=== PATIENT | female | born 1955 | race Caucasian/White ===

== ENCOUNTER → 2020-03-25 10:45 | Outpatient (BNVA) | payer OTHER, SELFPAY | PROVIDERS: PCP Internal Medicine; Referring Provider Internal Medicine; Visit Provider Obstetrics & Gynecology | DX: Z76.89 Persons encountering health services in other specified circumstances (principal) ==

== ENCOUNTER 2020-09-28 09:50 | Outpatient (REF) | payer OTHER, SELFPAY ==
--- NOTE | ~2020-09-28 | MM_ITS ---
EXAMINATION: MM SCREENING DIGITAL BREAST TOMOSYNTHESIS, BILATERAL CLINICAL INFORMATION: Screening. Asymptomatic. No known family history breast cancer. No prior breast imaging. The lifetime risk of breast cancer based on the Tyrer-Cuzick Model is 9%. COMPARISON: None (current study represents initial baseline exam). TECHNIQUE: Digital breast tomosynthesis is performed in both the craniocaudal and mediolateral oblique views along with computer-aided detection (CAD). Synthesized 2D images are generated from the tomosynthesis. FINDINGS: The breasts are heterogeneously dense, which may obscure small masses (ACR BI-RADS breast composition Category c). There is no significant mass or architectural abnormality. There are scattered bilateral diffuse punctate and some coarse calcifications. No focal versus calcifications. The axilla and skin contours are unremarkable. MM/MM tomosynthesis screening BI IMPRESSION: No mammographic evidence of malignancy. ASSESSMENT: BI-RADS 2: Benign RECOMMENDATION: Routine annual mammography screening. This patient's information was entered into a reminder system with a target due date for their next mammogram.
== END 2020-09-28 09:51 | disposition home or self-care (01) ==
LOC: HO.MAMMO 09:50
PROVIDERS: Referring Provider Obstetrics & Gynecology; Visit Provider Internal Medicine
DX: Z12.31 Encounter for screening mammogram for malignant neoplasm of breast (principal)
CPT/HCPCS: 77063; 77067

== ENCOUNTER 2021-08-18 08:11 | Outpatient (REF) | payer OTHER, SELFPAY ==
[2021-08-18 08:45] LABS: MANUAL DIFF FLAG NO
[2021-08-18 08:55] LABS: Basophils Percent Auto 0.4 % (0-2); Eosinophils Absolute Auto 0.1 X10*3/uL (0.0-0.4); Eosinophils Percent Auto 1.7 % (0-4); Hematocrit 35.8 % (37.0-47.0); Hemoglobin 12.1 g/dl (12.0-16.0); Imm Gran Abs Auto 0.03 X10*3/uL (0.00-0.03); Imm Gran Pct Auto 0.6 % (0.0-0.4); Lymphocytes Absolute Auto 0.6 X10*3/uL (1.2-4.9); Lymphocytes Percent Auto 12.9 % (20-40); Mean Corpuscular HGB Conc 33.8 g/dl (31.0-35.0); Mean Corpuscular Hemoglobin 29.3 pg (27.0-33.0); Mean Corpuscular Volume 86.7 fL (80.0-98.0); Monocytes Absolute Auto 0.4 X10*3/uL (0.1-1.2); Monocytes Percent Auto 7.5 % (2-11); Neutrophils Absolute Auto 3.7 x10*3/uL (2.0-8.3); Neutrophils Percent Auto 76.9 % (45-73); Platelet Count 244 X10*3/uL (160-400); Red Blood Count 4.13 X10*6/uL (4.20-5.50); Red Cell Distribution Width 12.8 % (11.0-16.0); White Blood Count 4.8 X10*3/uL (4.8-10.8)
[2021-08-18 09:27] LABS: Alanine Aminotransferase 6 U/L (0-31); Albumin Level 4.2 g/dL (3.5-5.0); Alkaline Phosphatase 88 U/L (39-117); Anion Gap 13 (12-20); Aspartate Amino Transferase 15 U/L (5-31); Bilirubin Total 0.8 mg/dL (0.0-1.0); Blood Urea Nitrogen 21 mg/dL (9-16); Calcium 9.5 mg/dL (8.4-10.2); Carbon Dioxide 21 mmol/L (22-29); Chloride 111 mmol/L (96-108); Cholesterol 180 mg/dL; Estimated Glomerular Filt Rate 54; Glucose Random 118 mg/dL (60-115); HDL Cholesterol 48 mg/dL; LDL Cholesterol Calculated 114 mg/dl; Potassium 4.2 mmol/L (3.3-5.1); Sodium 141 mmol/L (135-145); Total Protein 6.7 g/dL (6.5-8.0); Triglycerides 94 mg/dL
== END 2021-08-18 08:12 | disposition home or self-care (01) ==
LOC: HO.LAB 08:11
PROVIDERS: PCP Internal Medicine; Visit Provider Physician Assistant
DX: Z00.00 Encounter for general adult medical examination without abnormal findings (principal)
CPT/HCPCS: 36415; 80053; 80061; 85025

== ENCOUNTER 2021-10-04 09:48 | Outpatient (REF) | payer MEDICARE, SELFPAY ==
--- NOTE | ~2021-10-04 | MM_ITS ---
EXAMINATION: MM SCREENING DIGITAL BREAST TOMOSYNTHESIS, BILATERAL CLINICAL INFORMATION: Screening. Asymptomatic. The lifetime risk of breast cancer based on the Tyrer-Cuzick Model is 8%. COMPARISON: Mammography: 09/28/2020 (baseline) TECHNIQUE: Digital breast tomosynthesis is performed in both the craniocaudal and mediolateral oblique views along with computer-aided detection (CAD). Synthesized 2D images are generated from the tomosynthesis. FINDINGS: The breasts are heterogeneously dense, which may obscure small masses (ACR BI-RADS breast composition Category c). Parenchymal pattern is similar to prior studies. There is no significant mass or architectural abnormality. No developing density. Scattered bilateral punctate round calcifications are again seen similar in number and distribution to prior baseline exam. The axilla and skin contours are unremarkable. MM/MM tomosynthesis screening BI IMPRESSION: No mammographic evidence of malignancy. ASSESSMENT: BI-RADS 2: Benign RECOMMENDATION: Routine annual mammography screening. This patient's information was entered into a reminder system with a target due date for their next mammogram.
== END 2021-10-04 09:49 | disposition home or self-care (01) ==
LOC: HO.MAMMO 09:48
PROVIDERS: Visit Provider Internal Medicine
DX: Z12.31 Encounter for screening mammogram for malignant neoplasm of breast (principal)
CPT/HCPCS: 77063; 77067

== ENCOUNTER 2022-08-27 07:41 | Outpatient (REF) | payer MEDICARE, SELFPAY ==
[2022-08-27 07:55] LABS: MANUAL DIFF FLAG NO
[2022-08-27 08:23] LABS: Basophils Percent Auto 0.9 % (0-2); Eosinophils Absolute Auto 0.1 X10*3/uL (0.0-0.4); Eosinophils Percent Auto 2.8 % (0-4); Hematocrit 38.2 % (37.0-47.0); Hemoglobin 12.9 g/dl (12.0-16.0); Imm Gran Abs Auto 0.01 X10*3/uL (0.00-0.03); Imm Gran Pct Auto 0.2 % (0.0-0.4); Lymphocytes Percent Auto 20.2 % (20-40); Mean Corpuscular HGB Conc 33.8 g/dl (31.0-35.0); Mean Corpuscular Volume 85.8 fL (80.0-98.0); Mean Platelet Volume 9.1 fL (9.4-12.3); Monocytes Absolute Auto 0.5 X10*3/uL (0.1-1.2); Monocytes Percent Auto 9.6 % (2-11); Neutrophils Absolute Auto 3.1 x10*3/uL (2.0-8.3); Neutrophils Percent Auto 66.3 % (45-73); Platelet Count 300 X10*3/uL (160-400); Red Blood Count 4.45 X10*6/uL (4.20-5.50); Red Cell Distribution Width 12.9 % (11.0-16.0); White Blood Count 4.7 X10*3/uL (4.8-10.8)
[2022-08-27 09:05] LABS: Alanine Aminotransferase < 6 U/L (0-31); Albumin Level 4.4 g/dL (3.5-5.0); Alkaline Phosphatase 80 U/L (39-117); Anion Gap 14 (12-20); Aspartate Amino Transferase 15 U/L (5-31); Blood Urea Nitrogen 17 mg/dL (9-16); Calcium 9.3 mg/dL (8.4-10.2); Carbon Dioxide 24 mmol/L (22-29); Chloride 109 mmol/L (96-108); Cholesterol 194 mg/dL; Estimated Glomerular Filt Rate 55; Glucose Random 97 mg/dL (60-115); HDL Cholesterol 58 mg/dL; LDL Cholesterol Calculated 119 mg/dl; Potassium 4.3 mmol/L (3.3-5.1); Sodium 143 mmol/L (135-145); Total Protein 6.8 g/dL (6.5-8.0); Triglycerides 85 mg/dL
== END 2022-08-27 07:42 | disposition home or self-care (01) ==
LOC: HO.LAB 07:41
PROVIDERS: PCP Internal Medicine; Visit Provider Physician Assistant
DX: Z00.00 Encounter for general adult medical examination without abnormal findings (principal)
CPT/HCPCS: 36415; 80053; 80061; 85025

== ENCOUNTER 2022-10-10 09:48 | Outpatient (REF) | payer MEDICARE, SELFPAY ==
--- NOTE | ~2022-10-10 | MM_ITS ---
EXAMINATION: MM SCREENING DIGITAL BREAST TOMOSYNTHESIS, BILATERAL CLINICAL INFORMATION: Screening. Asymptomatic. The lifetime risk of breast cancer based on the Tyrer-Cuzick Model is 7%. COMPARISON: Mammography: 10/04/2021, 09/28/2020 (baseline) TECHNIQUE: Digital breast tomosynthesis is performed in both the craniocaudal and mediolateral oblique views along with computer-aided detection (CAD). Synthesized 2D images are generated from the tomosynthesis. FINDINGS: The breasts are heterogeneously dense, which may obscure small masses (ACR BI-RADS breast composition Category c). There are no significant masses, abnormal calcifications, or other abnormalities. No architectural abnormality or developing density or significant change from prior studies. Again, there are scattered bilateral punctate and coarse calcifications similar to prior exams. The axilla are unremarkable. The skin contours are smooth. No significant changes from prior exams. MM/MM tomosynthesis screening BI IMPRESSION: No mammographic evidence of malignancy. ASSESSMENT: BI-RADS 2: Benign RECOMMENDATION: Routine annual mammography screening. This patient's information was entered into a reminder system with a target due date for their next mammogram.
== END 2022-10-10 09:49 | disposition home or self-care (01) ==
LOC: HO.MAMMO 09:48
PROVIDERS: PCP Internal Medicine; Visit Provider Internal Medicine
DX: Z12.31 Encounter for screening mammogram for malignant neoplasm of breast (principal)
CPT/HCPCS: 77063; 77067

== ENCOUNTER 2023-03-04 07:11 | Outpatient (REF) | payer MEDICARE, SELFPAY ==
--- NOTE | ~2023-03-04 | XR_ITS ---
EXAMINATION: XR CHEST CLINICAL INFORMATION: Cough COMPARISON: None available. TECHNIQUE: 2 views of the chest were obtained. FINDINGS: No acute finding. Lung whaley are felt to be grossly clear. No infiltrate. There is no effusion. The cardiac silhouette is within normal limits. The hilar regions do not appear pathologically enlarged. Degenerative changes and scoliosis in the thoracic spine. XR/XR chest 2V IMPRESSION: No acute finding.
== END 2023-03-04 07:12 | disposition home or self-care (01) ==
LOC: HO.XRAY 07:11
PROVIDERS: PCP Internal Medicine; Visit Provider Physician Assistant
DX: R05.9 Cough, unspecified (principal)
CPT/HCPCS: 71046

== ENCOUNTER 2023-08-25 07:37 | Outpatient (REF) | payer MEDICARE, SELFPAY ==
[2023-08-25 07:54] LABS: MANUAL DIFF FLAG NO
[2023-08-25 08:27] LABS: Basophils Percent Auto 0.5 % (0-2); Eosinophils Absolute Auto 0.2 X10*3/uL (0.0-0.4); Eosinophils Percent Auto 2.7 % (0-4); Hematocrit 35.4 % (37.0-47.0); Hemoglobin 12.2 g/dl (12.0-16.0); Imm Gran Abs Auto 0.02 X10*3/uL (0.00-0.03); Imm Gran Pct Auto 0.4 % (0.0-0.4); Lymphocytes Absolute Auto 1.1 X10*3/uL (1.2-4.9); Lymphocytes Percent Auto 19.2 % (20-40); Mean Corpuscular HGB Conc 34.5 g/dl (31.0-35.0); Mean Corpuscular Hemoglobin 29.5 pg (27.0-33.0); Mean Corpuscular Volume 85.7 fL (80.0-98.0); Mean Platelet Volume 9.2 fL (9.4-12.3); Monocytes Absolute Auto 0.5 X10*3/uL (0.1-1.2); Neutrophils Absolute Auto 3.7 x10*3/uL (2.0-8.3); Neutrophils Percent Auto 68.2 % (45-73); Platelet Count 270 X10*3/uL (160-400); Red Blood Count 4.13 X10*6/uL (4.20-5.50); Red Cell Distribution Width 12.9 % (11.0-16.0); White Blood Count 5.5 X10*3/uL (4.8-10.8)
[2023-08-25 08:29] LABS: Estimated Average Glucose 108 mg/dL; Hemoglobin A1c % 5.4 % (<6.0)
[2023-08-25 08:57] LABS: Alanine Aminotransferase 5 U/L (0-31); Albumin Level 4.2 g/dL (3.5-5.0); Alkaline Phosphatase 91 U/L (39-117); Anion Gap 13 (12-20); Aspartate Amino Transferase 15 U/L (5-31); Bilirubin Total 0.5 mg/dL (0.0-1.0); Blood Urea Nitrogen 23 mg/dL (9-16); Calcium 9.3 mg/dL (8.4-10.2); Carbon Dioxide 24 mmol/L (22-29); Chloride 109 mmol/L (96-108); Cholesterol 191 mg/dL (<200); Estimated Glomerular Filt Rate 59; Glucose Random 109 mg/dL (60-115); HDL Cholesterol 58 mg/dL (>40); LDL Cholesterol Calculated 117 mg/dL (<100); Potassium 4.1 mmol/L (3.3-5.1); Sodium 142 mmol/L (135-145); Total Protein 6.7 g/dL (6.5-8.0); Triglycerides 84 mg/dL (<150)
[2023-08-25 09:13] LABS: Vitamin D 25-OH Total 10.8 ng/mL (>30)
== END 2023-08-25 07:38 | disposition home or self-care (01) ==
LOC: HO.LAB 07:37
PROVIDERS: Visit Provider Physician Assistant
DX: Z00.00 Encounter for general adult medical examination without abnormal findings (principal); Z20.2 Contact with and (suspected) exposure to infections with a predominantly sexual mode of transmission
CPT/HCPCS: 36415; 80053; 80061; 82306; 83036; 85025

== ENCOUNTER 2023-10-16 07:32 | Outpatient (REF) | payer MEDICARE, SELFPAY ==
--- NOTE | ~2023-10-16 | MM_ITS ---
EXAMINATION: MM SCREENING DIGITAL BREAST TOMOSYNTHESIS, BILATERAL CLINICAL INFORMATION: Screening. Asymptomatic. COMPARISON: Mammography: This study is compared with prior exams dating back to 2020. TECHNIQUE: Digital breast tomosynthesis is performed in both the craniocaudal and mediolateral oblique views along with computer-aided detection (CAD). Synthesized 2D images are generated from the tomosynthesis. FINDINGS: The breasts are heterogeneously dense, which may obscure small masses (ACR BI-RADS breast composition Category c). There are no significant masses, abnormal calcifications, or other abnormalities. There are unchanged, bilateral, benign calcifications. MM/MM tomosynthesis screening BI IMPRESSION: No mammographic evidence of malignancy. ASSESSMENT: BI-RADS BI-RADS 2 - Benign Findings RECOMMENDATION: Routine annual mammography screening. 1 year F/U This examination should not preclude the clinical evaluation of a suspicious palpable abnormality. This patient's information was entered into a reminder system with a target due date for their next mammogram.
== END 2023-10-16 07:33 | disposition home or self-care (01) ==
LOC: HO.MAMMO 07:32
PROVIDERS: PCP Internal Medicine; Visit Provider Internal Medicine
DX: Z12.31 Encounter for screening mammogram for malignant neoplasm of breast (principal)
CPT/HCPCS: 77063; 77067

== ENCOUNTER → 2023-10-16 07:45 | Outpatient (BNV) | payer MEDICARE, SELFPAY | PROVIDERS: PCP Internal Medicine; Visit Provider Radiology Diagnostic Radiology | DX: Z12.31 Encounter for screening mammogram for malignant neoplasm of breast (principal) | CPT/HCPCS: 77063; 77067 ==

== ENCOUNTER 2024-09-12 07:30 | Outpatient (REF) | payer MEDICARE, SELFPAY ==
[2024-09-12 07:49] LABS: MANUAL DIFF FLAG NO
[2024-09-12 08:13] LABS: Basophils Percent Auto 0.7 % (0-2); Eosinophils Absolute Auto 0.1 X10*3/uL (0.0-0.4); Eosinophils Percent Auto 2.5 % (0-4); Hematocrit 37.5 % (37.0-47.0); Hemoglobin 12.4 g/dl (12.0-16.0); Imm Gran Abs Auto 0.03 X10*3/uL (0.00-0.03); Imm Gran Pct Auto 0.5 % (0.0-0.4); Lymphocytes Absolute Auto 0.9 X10*3/uL (1.2-4.9); Lymphocytes Percent Auto 16.1 % (20-40); Mean Corpuscular HGB Conc 33.1 g/dl (31.0-35.0); Mean Corpuscular Hemoglobin 28.6 pg (27.0-33.0); Mean Corpuscular Volume 86.6 fL (80.0-98.0); Mean Platelet Volume 9.3 fL (9.4-12.3); Monocytes Absolute Auto 0.4 X10*3/uL (0.1-1.2); Monocytes Percent Auto 7.2 % (2-11); Platelet Count 342 X10*3/uL (160-400); Red Blood Count 4.33 X10*6/uL (4.20-5.50); White Blood Count 5.5 X10*3/uL (4.8-10.8)
[2024-09-12 08:33] LABS: Estimated Average Glucose 120 mg/dL; Hemoglobin A1c % 5.8 % (<6.0)
[2024-09-12 08:59] LABS: Alanine Aminotransferase 6 U/L (0-31); Albumin Level 4.4 g/dL (3.5-5.0); Alkaline Phosphatase 85 U/L (39-117); Anion Gap 10 (12-20); Aspartate Amino Transferase 18 U/L (5-31); Bilirubin Total 0.6 mg/dL (0.0-1.0); Blood Urea Nitrogen 21 mg/dL (9-16); Calcium 9.3 mg/dL (8.4-10.2); Carbon Dioxide 24 mmol/L (22-29); Chloride 112 mmol/L (96-108); Cholesterol 181 mg/dL (<200); Estimated Glomerular Filt Rate > 60; Glucose Random 107 mg/dL (60-115); HDL Cholesterol 58 mg/dL (>40); LDL Cholesterol Calculated 107 mg/dL (<100); Potassium 4.2 mmol/L (3.3-5.1); Sodium 142 mmol/L (135-145); Triglycerides 82 mg/dL (<150)
[2024-09-12 09:18] LABS: Free T4 (Free Thyroxine) 1.08 ng/dL (0.71-1.85); Thyroid Stimulating Hormone 4.94 uIU/mL (0.32-4.0); Vitamin D 25-OH Total 40.9 ng/mL (>30)
[2024-09-12 09:24] LABS: Folate 7.3 ng/mL (> or = 4.0); Vitamin B12 161 pg/mL (200-900)
== END 2024-09-12 07:31 | disposition home or self-care (01) ==
LOC: HO.LAB 07:30
PROVIDERS: PCP Internal Medicine; Visit Provider Physician Assistant
DX: Z00.00 Encounter for general adult medical examination without abnormal findings (principal); Z13.1 Encounter for screening for diabetes mellitus
CPT/HCPCS: 36415; 80053; 80061; 82306; 82607; 82746; 83036; 84439; 84443; 85025

== ENCOUNTER 2024-09-27 07:32 | Outpatient (REF) | payer MEDICARE, SELFPAY ==
--- OUTSIDE RECORDS SUMMARY | 2024-09-27 07:37 | XMS_ITS | Data Portability ---
Author Organization [facility], Home Service Address [address] [place] [address] Assessment Encounter Date Assessment Date Assessment LastModified by Organization Details LastModified Time 03/10/2021 03/10/2021 Patient agreed and verbally consents to this audio and video Telehealth appt via a secure platform [email or web address] Not available 03/10/2021 09:43:07 Plan of Treatment Reminders Order Date Submit Date Provider Last Modified By Organization Details Last Modified Time Details Appointments ANNUAL EXAM 2025 03:30P M CYNTHIA NINA Not available Not available Not available Lab CMP, serum or plasma 2024 025 [facility], [address] [place] [address], [id number], 09/01/2024 15:48:27 CBC w/ auto diff 2024 025 [facility], [address] [place] [address], [id number], 09/01/2024 15:48:27 lipid panel, blood 2024 025 [facility], [address] [place] [address], [id number], 09/01/2024 15:48:27 vitamin D, 25-hydrox y, total, serum 2024 025 [facility], [address] [place] [address], [id number], 09/01/2024 15:48:27 hemoglobi n A1c, QN, blood 2024 025 [facility], [address] [place] [address], [id number], 09/01/2024 15:48:27 TSH + free T4, serum 2024 025 [facility], [address] [place] [address], [id number], 09/01/2024 15:48:27 vitamin B12 + folate, serum or blood 2024 025 [facility], [address] [place] [address], [id number], 09/01/2024 15:48:27 CMP, serum or plasma 2023 024 [facility], [address] [place] [address], [id number], 08/25/2023 11:41:48 CBC w/ auto diff 2023 024 [facility], [address] [place] [address], [id number], 08/23/2023 13:35:27 lipid panel, blood 2023 024 [facility], [address] [place] [address], [id number], 08/25/2023 11:41:48 hemoglobi n A1c, QN, blood 2023 024 [facility], [address] [place] [address], [id number], 08/23/2023 13:35:27 vitamin D, 25-hydrox y, total, serum 2023 024 [facility], [address] [place] [address], [id number], 08/23/2023 13:35:27 CMP, serum or plasma 2022 023 [facility], [address] [place] [address], [place], [id number], 08/27/2022 11:57:21 lipid panel, blood 2022 023 [facility], [address] [place] [address], [id number], 08/17/2022 13:50:34 CBC w/ auto diff 2022 023 [facility], [address] [place] [address], [id number], 08/17/2022 13:50:35 CMP, serum or plasma 2021 022 [facility], [address] [place] [address], [id number], 08/13/2021 14:55:08 CBC w/ auto diff 2021 022 [facility], [address] [place] [address], [id number], 08/13/2021 14:55:07 lipid panel, blood 2021 022 [facility], [address] [place] [address], [id number], 08/13/2021 14:55:08 Referral None recorded. Procedures None recorded. Surgeries None recorded. Imaging None recorded. Medication Orders amlodipin e 5 mg tablet 2020 021 [email or web address] [id number], [address] [place], [address], 08/13/2021 14:41:04 losartan 100 mg tablet 2020 021 [email or web address] [id number], [address] [place], [address], 09/09/2021 11:10:45 Patient TargetsNo targets recorded. Patient InstructionsNo instructions recorded. Reason for Referral None Reported. Results Created Date Observation Date Name Description Value Unit Range Abnormal Flag Note LastModifiedBy Organization Detail LastModifiedTime 10/07/19 22 10/04/2021 MAMMO , scree ramila, digit al, bilat eral No observ ation record ed. [email or web address] [address] [place], [address], 10/06/2021 16:52:06 10/21/19 23 10/10/2022 MAMMO , scree ramila, digit al, bilat eral No observ ation record ed. [address] [place], [address], 08/23/2023 13:37:40 03/04/20 23 03/04/2023 XR, chest , 2 view No observ ation record ed. [facility] (Medical Records) [address] [facility], [place], [address], 08/23/2023 13:37:39 10/23/19 24 10/16/2023 MAMMO , scree ramila, digit al, bilat eral No observ ation record ed. [address] [place], [address], 10/25/2023 08:42:37 Result Notes None recorded. Problems Name Problem SNOMED Code Status Onset Date Resolution Date Notes Provider Name and Address Organization Details Recorded Time Malignant neoplasm of uterus 271522682 Active 2019 Not Available [facility] 3 15:44:46 Essential hypertensi on 80151652 Active 2021 Not Available [facility] 3 15:44:46 Cough 60247879 Active 2022 Not Available [facility] 3 15:44:46 Subclinica l hypothyroi dism 68121363 Active 2024 CYNTHIA NINA [address] [place], [address], [facility] 16:45:15 Problem Notes None recorded. Procedures Surgical History Date Name Laterality Status Provider Name and Address Organization Details Recorded Time 0 Colonoscopy completed Alexandra Lal [facility] 04/26/2020 08:21:15 Imaging Results Imaging Date Name Status LastModified by Organiz ation Details LastModified Time 10/04/2021 MAMMO, screening, digital, bilateral completed [email or web address] [address] [place], [address], 10/06/2021 16:52:06 10/10/2022 MAMMO, screening, digital, bilateral completed [address] [place], [address], 08/23/2023 13:37:40 03/04/2023 XR, chest, 2 view completed [facility] (Medical Records) [address] [place], [address], 08/23/2023 13:37:39 10/16/2023 MAMMO, screening, digital, bilateral completed [address] [place], [address], 10/25/2023 08:42:37 Procedure Notes None recorded. Medical Equipment None Reported. Allergies No known drug allergies Medications Name Sig Start Date Stop Date Status Note LastModified by Organization Details LastModified Time losartan 50 mg tablet TAKE 1 TABLET EVERY DAY BY ORAL ROUTE FOR 30 DAYS. 08/13 completed Not Available Not Available Not Available erythromyci n 500 mg tablet TAKE 2 TABLETS BY MOUTH AT 2PM, 3PM AND THEN 10PM THE NIGHT BEFORE SURGERY 01/28 completed Not Available Not Available Not Available benzonatate 200 mg capsule TAKE 1 CAPSULE BY MOUTH THREE TIMES A DAY FOR 7 DAYS 08/22 completed Not Available Not Available Not Available ondansetron HCl 4 mg tablet TAKE 1 TABLET BY MOUTH EVERY 8 HOURS, NEEDED FOR NAUSEA/VO MITING 01/28 completed Not Available Not Available Not Available amlodipine 5 mg tablet TAKE 1 TABLET EVERY DAY BY ORAL ROUTE FOR 30 DAYS. 04/23 completed Not Available Not Available Not Available amlodipine 10 mg tablet TAKE 1 TABLET BY MOUTH EVERY DAY active Not Available Not Available No t Available lisinopril 10 mg tablet TAKE 1 TABLET BY MOUTH EVERY DAY 01/28 completed Not Available Not Available Not Available valsartan 320 mg tablet TAKE 1 TABLET BY MOUTH EVERY DAY 2024 active Not Available Not Available Not Avai lable ibuprofen 600 mg tablet 01/28 completed Not Available Not Available Not Available polyethylen e glycol 3350 17 gram/dose oral powder 01/28 completed Not Available Not Available Not Available methylpredn isolone 4 mg tablets in a dose pack TAKE 6 TABLETS ON DAY 1 DIRECTED ON PACKAGE AND DECREASE BY 1 TAB EACH DAY FOR A TOTAL OF 6 DAYS 08/22 completed Not Available Not Available Not Available neomycin 500 mg tablet TAKE 2 TABLETS BY MOUTH AT 2PM, 3PM AND THEN 10PM THE NIGHT BEFORE SURGERY 01/28 completed Not Available Not Available Not Available losartan 100 mg tablet TAKE 1 TABLET BY MOUTH EVERY DAY active Not Available Not Available No t Available oxycodone 5 mg tablet TAKE 1 TABLET BY MOUTH EVERY 6 HOURS NEEDED FOR PAIN 01/28 completed Not Available Not Available Not Available enoxaparin 40 mg/0.4 mL subcutaneou s syringe 01/28 completed Not Available Not Available Not Available Readi-Cat 2 2 % (w/v) oral suspension PLEASE SEE ATTACHED FOR DETAILED DIRECTION S active Not Available Not Available No t Available Vitals Date Recorded Body height Body mass index (BMI) Body weight Oxygen saturation Oxygen saturation in Arterial blood by Pulse oximetry Heart rate Systolic blood pressure Diastolic blood pressure Provider Name and Address Organization Details Last Updated DateTime 2 159.39 cm 26.7 kg/m2 79980.1 4 g 99 % 99 % 78 /min 142 mm[Hg] 80 mm[Hg] Clotilde Galloway [place] [facility] 2 14:42:28 Date Recorded Body height Body mass index (BMI) Body weight Heart rate Oxygen saturation Oxygen saturation in Arterial blood by Pulse oximetry Systolic blood pressure Diastolic blood pressure Provider Name and Address Organization Details Last Updated DateTime 3 158.75 cm 22.9 kg/m2 22097.6 7 g 48 /min 100 % 100 % 108 mm[Hg] 56 mm[Hg] Nia Ricketts [facility] 3 13:36:12 Date Recorded Body height Body mass index (BMI) Body weight Heart rate Oxygen saturation Oxygen saturation in Arterial blood by Pulse oximetry Systolic blood pressure Diastolic blood pressure Provider Name and Address Organization Details Last Updated DateTime 4 157.48 cm 23.2 kg/m2 36110.2 3 g 74 /min 98 % 98 % 110 mm[Hg] 80 mm[Hg] Hailee Sigalamond [facility] 4 13:25:51 Date Recorded Body height Body mass index (BMI) Body weight Heart rate Oxygen saturation Oxygen saturation in Arterial blood by Pulse oximetry Systolic blood pressure Diastolic blood pressure Provider Name and Address Organization Details Last Updated DateTime 5 160.02 cm 26.9 kg/m2 99302.0 4 g 78 /min 98 % 98 % 122 mm[Hg] 78 mm[Hg] Myron Chambers [facility] 5 15:34:14 Social History Question Answer Notes LastModified by Organizat ion Details LastModified Time Tobacco Smoking Status [facility] 12/18/2019 16:12:58 What Was The Date Of Your Most Recent Tobacco Screening? 09/01/2024 [email or web address] Information not available 09/01/2024 Sex: Unknown Functional Status None recorded. Mental Status None recorded. Family History Relationship Description Onset Age of this Age Resolved Age Notes LastModified by Organization Details LastModified Time Sister Neoplasm of brain [email or web address] Not available 2022 13:38:53 Medical History No medical history recorded. Gynecological HistoryNo gynecological history recorded. Obstetrics History GPAL:G 0 P 0 0 0 0 Immunizations Vaccine Type Date Status Note Provider Nam e and Address Organization Details Recorded Time COVID-19 vaccine, vector-nr, rS-ChAdOx1, PF, 0.5 mL 1 completed Not Available [facility] 01/31/2023 13:22:52 COVID-19, mRNA, LNP-S, PF, 100 mcg/0.5mL dose or 50 mcg/0.25mL dose 1 completed Not Available [facility] 01/31/2023 13:22:52 COVID-19, mRNA, LNP-S, PF, 50 mcg/0.5 mL dose 2 completed Not Available [facility] 01/31/2023 13:22:52 influenza, unspecified formulation 2 completed Not Available [facility] 01/31/2023 13:22:52 Past Encounters Encounter ID Performer Location Encounter Start Date Encounter Closed Date Diagnosis/Indication Diagnosis SNOMED-CT Code Diagnosis ICD10 Code Diagnosis Note [id number] [facility] [address] [place] [address], [place] [address] 12/18/2019 16:06:51 12/18/2019 16:33:45 Numbness of foot 694877261 R20.0 will check some labs to r/o underlying cause being related to vit def, diabetes, tsh will also get XR of the right foot to exclude/in clude anatomical cause [id number] [facility] [address] [facility], [place] [facility] [place] [address] 04/03/2020 14:03:03 04/03/2020 14:56:11 Essential hypertension 46669622 I10 will see back next week for fu would like to see 25% reduction in BP and hopefully can titrate medication again to reduce BP even more [id number] [facility] [address] [facility], [place] [address] 04/10/2020 15:55:56 04/10/2020 16:47:43 Pre-surgery evaluation 343178709 Z01.818 the patient came to office prior to pre-op appt for BP, started on lisinopril 10 mg, BP is now down from 204/110 to 130/82 which is a stable drop in BP for the patient, not symptomati c will continue to monitor BP up until her surgery, but BP is stable for her surgery based on exam and history, the patient is cleared for surgery [id number] [facility] [address] [facility], [facility] [place] [address] 01/28/2021 14:47:01 01/28/2021 16:00:38 Essential hypertension 15291950 I10 will start on losartan 50 mg and fu after she returns from vacation [id number] [facility] [address] [facility] [address] [address] 02/10/2021 14:15:56 02/10/2021 14:53:30 Hypertensive disorder 12836180 I10 increase losartan dose to 100 mg for best BP control prior to procedure and will refill for the 100 mgno cough now with medication switch [id number] [facility] [address] [facility] [address] [address] 03/10/2021 08:25:46 03/11/2021 12:04:24 Essential hypertension 13745466 I10 will fu in a week [id number] [facility] [address] [facility] [address], [place] [facility] [place] [address] 08/13/2021 14:12:17 08/13/2021 15:07:52 Active or passive immunization 503925536 Z23 will set up with shingles vaccine Adult heal th examination 065513862 Z00.00 will fu with routine blood work [id number] [facility] [address] [place] [address] [address] [address] 08/17/2022 13:29:23 08/17/2022 15:50:36 Active or passive immunization 430828824 Z23 will set up with shingles vaccine Adult heal th examination 254246065 Z00.00 will f/u with routine blood work [id number] [facility] [address] [facility] [address] [address] 08/23/2023 13:20:37 08/23/2023 14:45:23 Adult health examination 714661129 Z00.00 will f/u with routine blood work BP is excellent [id number] [facility] [address] [facility],[place] [address] 09/01/2024 15:23:52 09/01/2024 16:13:51 Adult health examination 069482145 Z00.00 will f/u with routine blood work BP is excellent Health Concerns Section Related Observation LastModified by Organization Detai ls LastModified Time None Recorded Concern Status LastModified by Organization Details LastModified Time None Recorded Advance Directives Directive None Recorded Payers Encounter Date Sequence Insurance Name Policy Number Policy Hinson Covered Member ID Hinson Member ID Guarantor Name 03/10/2021 1 [facility] [id number] Laila Pranes [id number] Laila Pranes 08/13/2021 1 [facility] [id number] Laila Pranes [id number] Laila Pranes 08/17/2022 1 [facility] [id number] Laila A Pranes [id number] Laila Pranes 08/23/2023 1 [facility] [id number] Laila A Pranes [id number] Laila Pranes 09/01/2024 1 [facility] [id number] Laila A Pranes [id number] Laila Pranes Notes Date Note Type Note Provider Name a nd Address Organization Details Recorded Time 1 text/html c/o high BP the patient reports that she went to get her biopsyher readings 187/90 and her BP was elevating with rechecks at the biopsywould not perform ither BP was fine with increase at her office visittold her to fu in office prior to biopsy with any concerns and to monitor at home if she couldthe patient did not buy a BP cuff, went to get her biopsy and had high readings againwill add amlodipine to her medication, at 100 mg of losartancannot take lisinopril due to cough will fu with check through patient in a week and adjust accordingly CYNTHIA NINA [address] [facility], [place], [address], [facility] 03/10/2021 09:43:53 2 text/html Annual WellnessReported bypatient.Diet and Nutrition:healthy diet; discussed vitamin and supplement use; discussed portion control; discussed maintaining calcium balance; discussed diet improvement Fracture Risk:no history of fractures; no recent explained fracture; no sudden unexplained fractures; no previous musculoskeletal injuries Physical Activity:does not exercise on a regular basis; discussed weightbearing activities Additional Lifestyle Factors:no tobacco use; no alcohol intake Depression Risk:never feels sad, empty, or tearful; no loss of interest in activities; no significant changes in weight; no sleep disturbances or insomnia; no agitation; no loss of energy; no feelings of worthlessness or guilt; no thoughts of suicide; no history of depression; no history of mood disorders Hearing:no loss of hearing Vision:no vision problems CYNTHIA NINA [address] [place], [address], [facility] 08/13/2021 14:53:52 3 text/html Annual WellnessReported bypatient.Diet and Nutrition:healthy diet; discussed vitamin and supplement use; discussed portion control; discussed maintaining calcium balance; discussed diet improvement Fracture Risk:no history of fractures; no recent explained fracture; no sudden unexplained fractures; no previous musculoskeletal injuries Physical Activity:exercises on a regular basis; recent increase in physical activity; good physical condition; discussed weightbearing activities; discussed exercise habits; more active in the summer Additional Lifestyle Factors:no tobacco use; drinks alcohol (mild-moderate) Depression Risk:never feels sad, empty, or tearful; no loss of interest in activities; no significant changes in weight; no sleep disturbances or insomnia; no agitation; no loss of energy; no feelings of worthlessness or guilt; no thoughts of suicide; no history of depression; no history of mood disorders Hearing:no loss of hearing; occasional feeling of blocked ear of the left side the patient states it is intermittent Vision:no vision problems her sister was diagnosed with a malignant brain tumornot sure what kindshe is not presenting with any symptoms CYNTHIA NINA [address] [place], [address], [facility] 08/17/2022 13:48:08 4 text/html Annual WellnessReported bypatient.Diet and Nutrition:healthy diet Fracture Risk:no history of fractures; no recent explained fracture; no sudden unexplained fractures; no previous musculoskeletal injuries Physical Activity:exercises on a regular basis; recent increase in physical activity; good physical condition Additional Lifestyle Factors:no tobacco use; no alcohol intake; stopped drinking alcohol Depression Risk:never feels sad, empty, or tearful; no loss of interest in activities; no significant changes in weight; no sleep disturbances or insomnia; no agitation; no loss of energy; no feelings of worthlessness or guilt; no thoughts of suicide; no history of depression; no history of mood disorders Hearing:no loss of hearing Vision:no vision problemsNotes:last dentist appt was in May CYNTHIA NINA [address] [place] [address], [address], [facility] 08/23/2023 13:39:16 5 text/html Annual WellnessReported bypatient.Diet and Nutrition:healthy diet; discussed vitamin and supplement use; discussed portion control; discussed maintaining calcium balance; discussed diet improvement Fracture Risk:no history of fractures; no recent explained fracture; no sudden unexplained fractures; no previous musculoskeletal injuries Physical Activity:exercises on a regular basis; recent increase in physical activity; good physical condition; discussed weightbearing activities; discussed exercise habits Additional Lifestyle Factors:no tobacco use; stopped drinking alcohol; drinks alcohol (mild-moderate) Depression Risk:never feels sad, empty, or tearful; no loss of interest in activities; no significant changes in weight; no sleep disturbances or insomnia; no agitation; no loss of energy; no feelings of worthlessness or guilt; no thoughts of suicide; no history of depression; no history of mood disorders Hearing:no loss of hearing Vision:no vision problemsNotes:last dentist appt was this wednesday CYNTHIA NINA [address] [place], [address], [facility] 09/01/2024 15:52:51 OBGyn Episode No OBEpisode recorded.
[2024-09-27 07:44] LABS: MANUAL DIFF FLAG NO
[2024-09-27 08:26] LABS: Estimated Average Glucose 117 mg/dL; Hemoglobin A1C 132.5876 umol/L; Hemoglobin A1c % 5.7 % (<6.0); Total Hemoglobin (HGBA1C) 3383.5188 umol/L
[2024-09-27 08:33] LABS: Basophils Percent Auto 0.7 % (0-2); Eosinophils Absolute Auto 0.1 X10*3/uL (0.0-0.4); Eosinophils Percent Auto 2.5 % (0-4); Hematocrit 37.8 % (37.0-47.0); Hemoglobin 12.8 g/dl (12.0-16.0); Imm Gran Abs Auto 0.04 X10*3/uL (0.00-0.03); Imm Gran Pct Auto 0.7 % (0.0-0.4); Lymphocytes Percent Auto 18.6 % (20-40); Mean Corpuscular HGB Conc 33.9 g/dl (31.0-35.0); Mean Corpuscular Hemoglobin 29.5 pg (27.0-33.0); Mean Corpuscular Volume 87.1 fL (80.0-98.0); Mean Platelet Volume 9.4 fL (9.4-12.3); Monocytes Absolute Auto 0.4 X10*3/uL (0.1-1.2); Monocytes Percent Auto 7.4 % (2-11); Neutrophils Absolute Auto 3.9 x10*3/uL (2.0-8.3); Neutrophils Percent Auto 70.1 % (45-73); Platelet Count 300 X10*3/uL (160-400); Red Blood Count 4.34 X10*6/uL (4.20-5.50); White Blood Count 5.5 X10*3/uL (4.8-10.8)
[2024-09-27 08:53] LABS: Alanine Aminotransferase < 6 U/L (0-31); Albumin Level 4.3 g/dL (3.5-5.0); Alkaline Phosphatase 88 U/L (39-117); Anion Gap 12 (12-20); Aspartate Amino Transferase 20 U/L (5-31); Bilirubin Total 0.5 mg/dL (0.0-1.0); Blood Urea Nitrogen 24 mg/dL (9-16); Calcium 9.4 mg/dL (8.4-10.2); Carbon Dioxide 23 mmol/L (22-29); Chloride 110 mmol/L (96-108); Cholesterol 198 mg/dL (<200); Estimated Glomerular Filt Rate 52; Glucose Random 115 mg/dL (60-115); HDL Cholesterol 61 mg/dL (>40); LDL Cholesterol Calculated 119 mg/dL (<100); Potassium 4.3 mmol/L (3.3-5.1); Sodium 141 mmol/L (135-145); Triglycerides 90 mg/dL (<150)
[2024-09-27 09:16] LABS: Free T4 (Free Thyroxine) 1.02 ng/dL (0.71-1.85); Vitamin D 25-OH Total 42.9 ng/mL (>30)
[2024-09-27 09:17] LABS: Folate 7.2 ng/mL (> or = 4.0); Vitamin B12 426 pg/mL (200-900)
== END 2024-09-27 07:33 | disposition home or self-care (01) ==
LOC: HO.LAB 07:32
PROVIDERS: PCP Internal Medicine; Visit Provider Physician Assistant
DX: Z00.00 Encounter for general adult medical examination without abnormal findings (principal); Z13.1 Encounter for screening for diabetes mellitus; Z13.6 Encounter for screening for cardiovascular disorders
CPT/HCPCS: 36415; 80053; 80061; 82306; 82607; 82746; 83036; 84439; 84443; 85025

== ENCOUNTER 2024-10-12 07:40 | Outpatient (REF) | payer MEDICARE, SELFPAY ==
--- OUTSIDE RECORDS SUMMARY | 2024-10-12 07:44 | XMS_ITS | Data Portability ---
Author Organization [facility] Home Service Address [address] [place] [address] Assessment Encounter Date Assessment Date Assessment LastModified [...] Lab CMP, serum or plasma 2024 025 [facility], [address] [place] [address], [id number], 09/28/2024 14:19:36 CBC w/ auto diff 2024 025 [facility], [address] [place] [address], [id number], 09/01/2024 15:48:27 lipid panel, blood 2024 025 [facility], [address] [place] [address], [address], 09/01/2024 15:48:27 vitamin D, 25-hydrox y, total, serum 2024 025 [facility], [address] [place] [address], [address], 09/01/2024 15:48:27 hemoglobi n A1c, QN, blood 2024 025 [facility], [address] [place] [address], [place], [address], 09/01/2024 15:48:27 TSH + free T4, serum 2024 025 [facility], [address] [place] [address], [address], 09/01/2024 15:48:27 vitamin B12 + folate, serum or blood 2024 025 [facility], [address] [place] [address], [address], 09/01/2024 15:48:27 CMP, serum or plasma 2023 024 [facility], [address] [place] [address], [address], 08/25/2023 11:41:48 CBC w/ auto diff 2023 024 [facility], [address] [place] [address], [place], [address], 08/23/2023 13:35:27 lipid panel, blood 2023 024 [facility], [address] [place] [address], [place], [address], 08/25/2023 11:41:48 hemoglobi n A1c, QN, blood 2023 024 [facility], [address] [place] [address], [address], 08/23/2023 13:35:27 vitamin D, 25-hydrox y, total, serum 2023 024 [facility], [address] [place] [address], [address], 08/23/2023 13:35:27 CMP, serum or plasma 2022 023 [facility], [address] [place] [address], [place], [address], 08/27/2022 11:57:21 lipid panel, blood 2022 023 [facility], [address] [place] [address], [address], 08/17/2022 13:50:34 CBC w/ auto diff 2022 023 [facility], [address] [place] [address], [address], 08/17/2022 13:50:35 CMP, serum or plasma 2021 022 [facility], [address] [place] [address], [address], 08/13/2021 14:55:08 CBC w/ auto diff 2021 022 [facility], [address] [place] [address], [place], [address], 08/13/2021 14:55:07 lipid panel, blood 2021 022 [facility], [address] [place] [address], [address], 08/13/2021 14:55:08 Referral None recorded. Procedures None recorded. Surgeries None recorded. Imaging None recorded. Medication Orders amlodipin e 5 mg tablet 2020 021 [email or web address] [id number], [address] [place], [address], 08/13/2021 14:41:04 losartan 100 mg tablet 2020 021 [email or web address] [id number], [address] [place], [address], 09/09/2021 11:10:45 Patient TargetsNo targets recorded. Patient InstructionsNo instructions recorded. Reason for Referral None Reported. Results Created Date Observation Date Name Description Value Unit Range Abnormal Flag Note LastModifiedBy Organization Detail LastModifiedTime 10/07/19 22 10/04/2021 MAMMO , scree ramila, digit al, bilat eral No observ ation record ed. [email or web address] [address] [place], [address], 10/06/2021 16:52:06 10/21/19 23 10/10/2022 MAMMO , scree ramila, digit al, bilat eral No observ ation record ed. [address] [place], [address], 08/23/2023 13:37:40 03/04/20 23 03/04/2023 XR, chest , 2 view No observ ation record ed. [facility] (Medical Records) [address] [facility], [place], [address], 08/23/2023 13:37:39 10/23/19 24 10/16/2023 MAMMO , scree ramila, digit al, bilat eral No observ ation record ed. [address] [place], [address], 10/25/2023 08:42:37 Result Notes None recorded. Problems Name Problem SNOMED Code Status Onset Date Resolution Date Notes Provider Name and Address Organization Details Recorded Time Malignant neoplasm of uterus 658787630 Active 2019 Not Available [facility] 3 15:44:46 Essential hypertensi on 24987613 Active 2021 Not Available [facility] 3 15:44:46 Cough 41327769 Active 2022 Not Available [facility] 3 15:44:46 Subclinica l hypothyroi dism 62724901 Active 2024 CYNTHIA NINA [address] [place], [address], [place] [facility] 16:45:15 Problem Notes None recorded. Procedures Surgical History Date Name Laterality Status Provider Name and Address Organization Details Recorded Time 0 Colonoscopy completed Alexandra Lal [facility] 04/26/2020 08:21:15 Imaging Results Imaging Date Name Status LastModified by Organiz ation Details LastModified Time 10/04/2021 MAMMO, screening, digital, bilateral completed [email or web address] [address] [place], [address], 10/06/2021 16:52:06 10/10/2022 MAMMO, screening, digital, bilateral completed [address] [place], [address], 08/23/2023 13:37:40 03/04/2023 XR, chest, 2 view completed [facility] (Medical Records) [address] [facility], [place] [address], 08/23/2023 13:37:39 10/16/2023 MAMMO, screening, digital, bilateral completed [address] [place], [address], 10/25/2023 08:42:37 Procedure Notes None recorded. Medical [...] Updated DateTime 2 159.39 cm 26.7 kg/m2 28686.1 4 g 99 % 99 % 78 /min 142 mm[Hg] 80 mm[Hg] Clotilde Galloway [facility] 2 14:42:28 Date Recorded Body height Body mass index (BMI) Body weight Heart rate Oxygen saturation Oxygen saturation in Arterial blood by Pulse oximetry Systolic blood pressure Diastolic blood pressure Provider Name and Address Organization Details Last Updated DateTime 3 158.75 cm 22.9 kg/m2 38113.6 7 g 48 /min 100 % 100 % 108 mm[Hg] 56 mm[Hg] Nia Ricketts [facility] 3 13:36:12 Date Recorded Body height Body mass index (BMI) Body weight Heart rate Oxygen saturation Oxygen saturation in Arterial blood by Pulse oximetry Systolic blood pressure Diastolic blood pressure Provider Name and Address Organization Details Last Updated DateTime 4 157.48 cm 23.2 kg/m2 49411.2 3 g 74 /min 98 % 98 % 110 mm[Hg] 80 mm[Hg] Hailee Jennings [facility] 4 13:25:51 Date Recorded Body height Body mass index (BMI) Body weight Heart rate Oxygen saturation Oxygen saturation in Arterial blood by Pulse oximetry Systolic blood pressure Diastolic blood pressure Provider Name and Address Organization Details Last Updated DateTime 5 160.02 cm 26.9 kg/m2 15299.0 4 g 78 /min 98 % 98 % 122 mm[Hg] 78 mm[Hg] Myron Chambers [facility] 5 15:34:14 Social History Question Answer Notes LastModified by Organizat ion Details LastModified Time Tobacco Smoking Status [facility] 12/18/2019 16:12:58 What Was The Date Of [...] PF, 0.5 mL 1 completed Not Available [facility] 01/31/2023 13:22:52 COVID-19, mRNA, LNP-S, PF, 100 mcg/0.5mL dose or 50 mcg/0.25mL dose 1 completed Not Available [facility] 01/31/2023 13:22:52 COVID-19, mRNA, LNP-S, PF, 50 mcg/0.5 mL dose 2 completed Not Available [facility] 01/31/2023 13:22:52 influenza, unspecified formulation 2 completed Not Available [facility] 01/31/2023 13:22:52 Past Encounters Encounter ID Performer Location Encounter Start Date Encounter Closed Date Diagnosis/Indication Diagnosis SNOMED-CT Code Diagnosis ICD10 Code Diagnosis Note [id number] [facility] [address] [facility] [place] [address] 12/18/2019 16:06:51 12/18/2019 16:33:45 Numbness of foot 735212321 R20.0 will check some labs to r/o underlying cause being related to vit def, diabetes, tsh will also get XR of the right foot to exclude/in clude anatomical cause [id number] [facility] [address] [facility] [place] [address] 04/03/2020 14:03:03 04/03/2020 14:56:11 Essential hypertension 77118856 I10 will see back next week for fu would like to see 25% reduction in BP and hopefully can titrate medication again to reduce BP even more [id number] [facility] [address] [facility] [place] [place] [address] 04/10/2020 15:55:56 04/10/2020 16:47:43 Pre-surgery evaluation 915169351 Z01.818 the patient came to office prior [...] history, the patient is cleared for surgery [id number] [facility] [address] [facility] [address] 01/28/2021 14:47:01 01/28/2021 16:00:38 Essential hypertension 36930539 I10 will start on losartan 50 mg and fu after she returns from vacation [id number] [facility] [address] [facility] [address] [address] 02/10/2021 14:15:56 02/10/2021 14:53:30 Hypertensive disorder 19387960 I10 increase losartan dose to 100 mg for best BP control prior to procedure and will refill for the 100 mgno cough now with medication switch [id number] [facility] [address] [facility] [place] [address] 03/10/2021 08:25:46 03/11/2021 12:04:24 Essential hypertension 80329608 I10 will fu in a week [id number] [facility] [address] [facility] [address] [address] 08/13/2021 14:12:17 08/13/2021 15:07:52 Active or passive immunization 946219785 Z23 will set up with shingles vaccine Adult heal th examination 311289709 Z00.00 will fu with routine blood work [id number] [facility] [address] [facility] [address] 08/17/2022 13:29:23 08/17/2022 15:50:36 Active or passive immunization 305122648 Z23 will set up with shingles vaccine Adult heal th examination 826955587 Z00.00 will f/u with routine blood work [id number] [facility] [address] [facility] [address] 08/23/2023 13:20:37 08/23/2023 14:45:23 Adult health examination 442968618 Z00.00 will f/u with routine blood work BP is excellent [id number] [facility] [address] [facility],[place] [address] 09/01/2024 15:23:52 09/01/2024 16:13:51 Adult health examination 947924673 Z00.00 will f/u with routine blood work BP is excellent Health Concerns Section Related Observation LastModified by Organization Detai ls LastModified Time None Recorded Concern Status LastModified by Organization Details LastModified Time None Recorded Advance Directives Directive None Recorded Payers Encounter Date Sequence Insurance Name Policy Number Policy Hinson Covered Member ID Hinson Member ID Guarantor Name 03/10/[address] [facility] [id number] Laila Pranes [id number] Laila Pranes 08/13/[address] [facility] [id number] Laila Pranes [id number] Laila Pranes 08/17/[address] [facility] [id number] Laila A Pranes [id number] Laila Pranes 08/23/[address] [facility] [id number] Laila A Pranes [id number] Laila Pranes 09/01/[address] [facility] [id number] Laila A Pranes [id number] Laila Pranes Notes Date Note Type Note [...] week and adjust accordingly CYNTHIA NINA [address] [facility], [place], [address], [facility] 03/10/2021 09:43:53 2 [...] hearing Vision:no vision problems CYNTHIA NINA [address] [place], [address], [facility], [place], [facility] 08/13/2021 14:53:52 3 text/html Annual WellnessReported bypatient.Diet [...] presenting with any symptoms CYNTHIA NINA [address] [place], [address], [facility], [place], [facility] 08/17/2022 13:48:08 4 text/html Annual [...] dentist appt was in May CYNTHIA NINA [address] [place], [address], [facility], [place], [facility] 08/23/2023 13:39:16 5 text/html Annual [...] appt was this wednesday CYNTHIA NINA [address] [place], [address], [facility], [place], [facility] 09/01/2024 15:52:51 OBGyn Episode No OBEpisode recorded.
[2024-10-12 08:58] LABS: Free T4 (Free Thyroxine) 0.95 ng/dL (0.71-1.85); Thyroid Stimulating Hormone 5.87 uIU/mL (0.32-4.0)
== END 2024-10-12 07:41 | disposition home or self-care (01) ==
LOC: HO.LAB 07:40
PROVIDERS: PCP Physician Assistant; Visit Provider Physician Assistant
DX: E03.8 Other specified hypothyroidism (principal)
CPT/HCPCS: 36415; 84439; 84443

== ENCOUNTER 2024-10-21 07:33 | Outpatient (REF) | payer MEDICARE, SELFPAY ==
--- OUTSIDE RECORDS SUMMARY | 2024-10-21 07:34 | XMS_ITS | Data Portability ---
Author Organization [facility] Home Service Address [address] [place] [address] Assessment Encounter Date Assessment Date Assessment LastModified [...] Lab CMP, serum or plasma 2024 025 [facility], [address] [place] [address], [id number], 09/28/2024 14:19:36 CBC w/ auto diff 2024 025 [facility], [address] [place] [address], [id number], 09/01/2024 15:48:27 lipid panel, blood 2024 025 [facility], [address] [place] [address], [id number], 09/01/2024 15:48:27 vitamin D, 25-hydrox y, total, serum 2024 025 [facility], [address] [place] [address], [address], 09/01/2024 15:48:27 hemoglobi n A1c, QN, blood 2024 025 [facility], [address] [place] [address], [place], [address], 09/01/2024 15:48:27 TSH + free T4, serum 2024 025 [facility], [address] [place] [address], [place], [address], 10/13/2024 12:34:24 vitamin B12 + folate, serum or blood 2024 025 [facility], [address] [place] [address], [address], 09/01/2024 15:48:27 CMP, serum or plasma 2023 024 [facility], [address] [place] [address], [address], 08/25/2023 11:41:48 CBC w/ auto diff 2023 024 [facility], [address] [place] [address], [place], [address], 08/23/2023 13:35:27 lipid panel, blood 2023 024 [facility], [address] [place] [address], [place], [address], 08/25/2023 11:41:48 hemoglobi n A1c, QN, blood 2023 024 [facility], [address] [place] [address], [address], 08/23/2023 13:35:27 vitamin D, 25-hydrox y, total, serum 2023 024 [facility], [address] [place] [address], [address], 08/23/2023 13:35:27 CMP, serum or plasma 2022 023 [facility], [address] [place] [address], [place], [address], 08/27/2022 11:57:21 lipid panel, blood 2022 023 [facility], [address] [place] [address], [address], 08/17/2022 13:50:34 CBC w/ auto diff 2022 023 [facility], [address] [place] [address], [address], 08/17/2022 13:50:35 CMP, serum or plasma 2021 022 [facility], [address] [place] [address], [address], 08/13/2021 14:55:08 CBC w/ auto diff 2021 022 [facility], [address] [place] [address], [place], [address], 08/13/2021 14:55:07 lipid panel, blood 2021 022 [facility], [address] [place] [address], [address], 08/13/2021 14:55:08 Referral None recorded. Procedures None recorded. Surgeries None recorded. Imaging None recorded. Medication Orders amlodipin e 5 mg tablet 2020 021 [id number], [address] [place], [address], 08/13/2021 14:41:04 losartan 100 mg tablet 2020 021 [id number], [address] [place], [address], 09/09/2021 11:10:45 Patient TargetsNo targets recorded. Patient InstructionsNo instructions recorded. Reason for Referral None Reported. Results Created Date Observation Date Name Description Value Unit Range Abnormal Flag Note LastModifiedBy Organization Detail LastModifiedTime 10/07/1910/04/2021 MAMMO , scree ramila, digit al, bilat eral No observ ation record ed. [email or web address] [address] [place], [address], 10/06/2021 16:52:06 10/21/19 23 10/10/2022 MAMMO , scree ramila, digit al, bilat eral No observ ation record ed. [address] [place], [address], 08/23/2023 13:37:40 03/04/20 23 03/04/2023 XR, chest , 2 view No observ ation record ed. [facility] (Medical Records) [address] [facility], [place], [address], 08/23/2023 13:37:39 10/23/19 24 10/16/2023 MAMMO , scree ramila, digit al, bilat eral No observ ation record ed. [address] [place], [address], 10/25/2023 08:42:37 Result Notes None recorded. Problems Name Problem SNOMED Code Status Onset Date Resolution Date Notes Provider Name and Address Organization Details Recorded Time Malignant neoplasm of uterus 540050061 Active 2019 Not Available [facility] 3 15:44:46 Essential hypertensi on 04865805 Active 2021 Not Available [facility] 3 15:44:46 Cough 54907944 Active 2022 Not Available [facility] 3 15:44:46 Subclinica l hypothyroi dism 75403365 Active 2024 CYNTHIA NINA [address] [place], [address], [facility] 5 16:45:15 Acquired hypothyroi dism 995055856 Active 2024 CYNTHIA NINA [address] [place], [address], [facility] 5 13:30:18 Problem Notes None recorded. Procedures Surgical History Date Name Laterality Status Provider Name and Address Organization Details Recorded Time 0 Colonoscopy completed Alexandraford Lal [facility] 04/26/2020 08:21:15 Imaging Results Imaging Date Name Status LastModified by Organiz ation Details LastModified Time 10/04/2021 MAMMO, screening, digital, bilateral completed [email or web address] [address] [place], [address], 10/06/2021 16:52:06 10/10/2022 MAMMO, screening, digital, bilateral completed [address] [place], [address], 08/23/2023 13:37:40 03/04/2023 XR, chest, 2 view completed [facility] (Medical Records) [address] [facility], [place], [address], 08/23/2023 13:37:39 10/16/2023 MAMMO, screening, digital, bilateral completed [address] [place], [address], 10/25/2023 08:42:37 Procedure Notes None recorded. Medical [...] Updated DateTime 2 159.39 cm 26.7 kg/m2 17756.1 4 g 99 % 99 % 78 /min 142 mm[Hg] 80 mm[Hg] Clotilde Vasquezner [facility] 2 14:42:28 Date Recorded Body height Body mass index (BMI) Body weight Heart rate Oxygen saturation Oxygen saturation in Arterial blood by Pulse oximetry Systolic blood pressure Diastolic blood pressure Provider Name and Address Organization Details Last Updated DateTime 3 158.75 cm 22.9 kg/m2 39987.6 7 g 48 /min 100 % 100 % 108 mm[Hg] 56 mm[Hg] Nia Ricketts [facility] 3 13:36:12 Date Recorded Body height Body mass index (BMI) Body weight Heart rate Oxygen saturation Oxygen saturation in Arterial blood by Pulse oximetry Systolic blood pressure Diastolic blood pressure Provider Name and Address Organization Details Last Updated DateTime 4 157.48 cm 23.2 kg/m2 16442.2 3 g 74 /min 98 % 98 % 110 mm[Hg] 80 mm[Hg] Hailee Sigalamond [facility] 4 13:25:51 Date Recorded Body height Body mass index (BMI) Body weight Heart rate Oxygen saturation Oxygen saturation in Arterial blood by Pulse oximetry Systolic blood pressure Diastolic blood pressure Provider Name and Address Organization Details Last Updated DateTime 5 160.02 cm 26.9 kg/m2 30192.0 4 g 78 /min 98 % 98 % 122 mm[Hg] 78 mm[Hg] Myron Phelan [facility] 5 15:34:14 Social History Question Answer Notes LastModified by Organizat ion Details LastModified Time Tobacco Smoking Status Never Smoker Alexandra blair [facility] 12/18/2019 16:12:58 What Was The Date Of [...] PF, 0.5 mL 1 completed Not Available [facility] 01/31/2023 13:22:52 COVID-19, mRNA, LNP-S, PF, 100 mcg/0.5mL dose or 50 mcg/0.25mL dose 1 completed Not Available [facility] 01/31/2023 13:22:52 COVID-19, mRNA, LNP-S, PF, 50 mcg/0.5 mL dose 2 completed Not Available [facility] 01/31/2023 13:22:52 influenza, unspecified formulation 2 completed Not Available [facility] 01/31/2023 13:22:52 Past Encounters Encounter ID Performer Location Encounter Start Date Encounter Closed Date Diagnosis/Indication Diagnosis SNOMED-CT Code Diagnosis ICD10 Code Diagnosis Note [id number] Goldy Marinelli [facility] [address] [place] [address],[place] [address] 12/18/2019 16:06:51 12/18/2019 16:33:45 Numbness of foot 216598621 R20.0 will check some labs to r/o underlying cause being related to vit def, diabetes, tsh will also get XR of the right foot to exclude/in clude anatomical cause [id number] Goldy Marinelli [facility] [address] [place] [address] 04/03/2020 14:03:03 04/03/2020 14:56:11 Essential hypertension 14093830 I10 will see back next week for fu would like to see 25% reduction in BP and hopefully can titrate medication again to reduce BP even more [id number] Goldy Marinelli [facility] [address] [place] [address],[place] [address] 04/10/2020 15:55:56 04/10/2020 16:47:43 Pre-surgery evaluation 814755755 Z01.818 the patient came to office prior to pre-op appt for BP, started on lisinopril 10 mg, BP is now down from 204/110 to 130/82 which is a stable drop in BP for the patient, royer landry will continue to monitor BP up until her surgery, but BP is stable for her surgery based on exam and history, the patient is cleared for surgery [id number] Goldy Marinelli [facility] [address] [facility] [address] [address] 01/28/2021 14:47:01 01/28/2021 16:00:38 Essential hypertension 65052485 I10 will start on losartan 50 mg and fu after she returns from vacation [id number] Goldy Marinelli [facility] [address] [facility] [address],[place] [address] 02/10/2021 14:15:56 02/10/2021 14:53:30 Hypertensive disorder 04002532 I10 increase losartan dose to 100 mg for best BP control prior to procedure and will refill for the 100 mgno cough now with medication switch [id number] Goldy Marinelli [facility] [address] [facility], [place] [address] 03/10/2021 08:25:46 03/11/2021 12:04:24 Essential hypertension 16770597 I10 will fu in a week [id number] Goldy Marinelli [facility] [address] [facility],[place] [address] 08/13/2021 14:12:17 08/13/2021 15:07:52 Active or passive immunization 156129841 Z23 will set up with shingles vaccine Adult heal th examination 688937233 Z00.00 will fu with routine blood work [id number] Goldy Marinelli [facility] [address] [facility] [address],[place] [address] 08/17/2022 13:29:23 08/17/2022 15:50:36 Active or passive immunization 170181647 Z23 will set up with shingles vaccine Adult heal th examination 230470496 Z00.00 will f/u with routine blood work [id number] Goldy Marinelli [facility] [address] [facility] [address] [address] 08/23/2023 13:20:37 08/23/2023 14:45:23 Adult health examination 822942391 Z00.00 will f/u with routine blood work BP is excellent [id number] DO [facility] [address] [facility],[place] [address] 09/01/2024 15:23:52 09/01/2024 16:13:51 Adult health examination 280932302 Z00.00 will f/u with routine blood work BP is excellent Health Concerns Section Related Observation LastModified by Organization Detai ls LastModified Time None Recorded Concern Status LastModified by Organization Details LastModified Time None Recorded Advance Directives Directive None Recorded Payers Encounter Date Sequence Insurance Name Policy Number Policy Hinson Covered Member ID Hinson Member ID Guarantor Name 03/10/2021 1 [facility] [id number] Laila Pranes [id number] Laila Pranes 08/13/2021 1 [facility] [id number] Laila Pranes [id number] Laila Pranes 08/17/2022 1 [facility] [id number] Laila A Pranes [id number] Laila Pranes 08/23/2023 1 [facility] [id number] Laila A Pranes [id number] Laila Pranes 09/01/2024 1 [facility] [id number] Laila A Pranes [id number] Laila Pranes Notes Date Note Type Note [...] week and adjust accordingly CYNTHIA NINA [address] [facility], [place], [address], [facility] 03/10/2021 09:43:53 2 text/html Annual [...] hearing Vision:no vision problems CYNTHIA NINA [address] [place], [address], [facility] 08/13/2021 14:53:52 3 text/html Annual WellnessReported [...] presenting with any symptoms CYNTHIA NINA [address] [place], [address] 08/17/2022 13:48:08 4 text/html Annual [...] appt was in May CYNTHIA NINA [address] [place], [address], [facility] 08/23/2023 13:39:16 5 text/html Annual [...] appt was this wednesday CYNTHIA NINA [address] [place], [address], [facility] 09/01/2024 15:52:51 OBGyn Episode No OBEpisode recorded.
== END 2024-10-21 07:34 | disposition home or self-care (01) ==
LOC: HO.MAMMO 07:33
PROVIDERS: PCP Internal Medicine; Visit Provider Internal Medicine
DX: Z12.31 Encounter for screening mammogram for malignant neoplasm of breast (principal)
CPT/HCPCS: 77063; 77067

== ENCOUNTER → 2024-10-21 07:45 | Outpatient (BNV) | payer MEDICARE, SELFPAY | PROVIDERS: PCP Internal Medicine; Visit Provider Internal Medicine | DX: Z12.31 Encounter for screening mammogram for malignant neoplasm of breast (principal) | CPT/HCPCS: 77063; 77067 ==